=== PATIENT | male | born 1945 | race Caucasian/White ===

== ENCOUNTER 2018-01-01 10:55 | Inpatient (IN) ==
[2018-01-01] MEDS ORDERED: Sod Chloride 0.9% Inj 1,000 ML IV.CONT SCH (11:15)
[2018-01-01] MEDS ORDERED: Morphine Inj 4 MG, Morphine Inj 2 MG IV.PUSH ONE ×4 (11:20→13:28)
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
[2018-01-01 12:24] LABS: Baso # (Auto) 0.1 th/mm3 (0.0-0.2); Baso % (Auto) 0.8 % (0.0-2.0); Eos # (Auto) 0.1 th/mm3 (0.0-0.4); Eos % (Auto) 1.7 % (0.0-4.0); Hematocrit 42.8 % (39.0-51.0); Lymph # (Auto) 2.2 th/mm3 (1.0-4.8); Lymph % (Auto) 31.1 % (9.0-44.0); Mean Corpuscular HGB Conc 32.8 % (32.0-36.0); Mean Corpuscular Hemoglobin 28.2 pg (27.0-34.0); Mean Corpuscular Volume 85.9 fL (80.0-100.0); Mean Platelet Volume 8.3 fL (7.0-11.0); Mono # (Auto) 0.5 th/mm3 (0.0-0.9); Neut # (Auto) 4.2 th/mm3 (1.8-7.7); Neut % (Auto) 59.4 % (16.0-70.0); Platelet Count 256 th/mm3 (150-450); Red Blood Count 4.98 mil/mm3 (4.50-5.90); Red Cell Distribution Width 13.9 % (11.6-17.2)
[2018-01-01 12:34] LABS: Activated Partial Thrombo Time 21.1 sec (24.3-30.1); Prothrombin Time 10.3 sec (9.8-11.6)
[2018-01-01 12:35] LABS: Anion Gap 8 meq/L (5-15); Aspartate Aminotransferase 65 U/L (15-37); Blood Urea Nitrogen 21 mg/dL (7-18); Calcium 9.2 mg/dL (8.5-10.1); Chloride 106 meq/L (98-107); Glomerular Filtration Rate 72 mL/min (>89); Glucose,Random 121 mg/dL (74-106); Potassium 4.2 meq/L (3.5-5.1); Sodium 140 meq/L (136-145)
[2018-01-01 12:36] LABS: Alanine Aminotransferase 57 U/L (12-78)
[2018-01-01 12:39] LABS: Alkaline Phosphatase 42 U/L (45-117); Total Protein 7.4 g/dL (6.4-8.2)
[2018-01-01] MEDS ORDERED: Diphtheria/Tetanus/Pertussis Vaccine Inj 0.5 ML Syringe IM ONE (13:02)
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
[2018-01-01] MEDS ORDERED: Acetaminophen 325 MG Tablet PO PRN (16:40)
[2018-01-01] MEDS ORDERED: Pantoprazole Inj 40 MG Vial IV.PUSH SCH (17:00)
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
[2018-01-01] MEDS: Morphine Sulfate Inj 2 MG/ML Vial IV.PUSH PRN ×2 (19:50→21:40)
[2018-01-01] MEDS: Sod Chloride 0.9% Inj 1,000 ML IV.CONT SCH (20:21)
[2018-01-01] MEDS: Pantoprazole Inj 40 MG Vial IV.PUSH SCH (20:35)
[2018-01-02] MEDS ORDERED: Chlorhexidine Gluconate 2% 1 Pack (2 Cloths) TOPICAL PRN (04:00)
[2018-01-02] MEDS: Morphine Sulfate Inj 2 MG/ML Vial IV.PUSH PRN (04:15)
[2018-01-02] MEDS: Chlorhexidine Gluconate 2% 1 Pack (2 Cloths) TOPICAL SCH (05:02)
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
[2018-01-02 05:36] LABS: Baso % (Auto) 0.6 % (0.0-2.0); Eos % (Auto) 0.6 % (0.0-4.0); Hematocrit 36.4 % (39.0-51.0); Hemoglobin 12.2 gm/dL (13.0-17.0); Lymph # (Auto) 1.5 th/mm3 (1.0-4.8); Lymph % (Auto) 20.3 % (9.0-44.0); Mean Corpuscular HGB Conc 33.4 % (32.0-36.0); Mean Corpuscular Hemoglobin 28.7 pg (27.0-34.0); Mean Corpuscular Volume 85.9 fL (80.0-100.0); Mean Platelet Volume 8.4 fL (7.0-11.0); Neut # (Auto) 4.6 th/mm3 (1.8-7.7); Neut % (Auto) 64.5 % (16.0-70.0); Platelet Count 207 th/mm3 (150-450); Red Blood Count 4.24 mil/mm3 (4.50-5.90); Red Cell Distribution Width 13.6 % (11.6-17.2); White Blood Count 7.2 th/mm3 (4.0-11.0)
[2018-01-02 06:14] LABS: Alanine Aminotransferase 44 U/L (12-78); Albumin 3.2 g/dL (3.4-5.0); Alkaline Phosphatase 37 U/L (45-117); Anion Gap 8 meq/L (5-15); Aspartate Aminotransferase 50 U/L (15-37); Blood Urea Nitrogen 19 mg/dL (7-18); Calcium 7.8 mg/dL (8.5-10.1); Carbon Dioxide 25.9 meq/L (21.0-32.0); Chloride 106 meq/L (98-107); Glomerular Filtration Rate 81 mL/min (>89); Glucose,Random 109 mg/dL (74-106); Sodium 140 meq/L (136-145); Total Protein 6.2 g/dL (6.4-8.2)
[2018-01-02] MEDS: Sod Chloride 0.9% Inj 1,000 ML IV.CONT SCH (06:47)
[2018-01-02] MEDS: Lidocaine 5% Patch T-DERMAL SCH (09:07)
[2018-01-02] MEDS: Senna/Docusate Sodium 8.6/50 MG Tablet PO SCH ×2 (09:07→20:15)
[2018-01-02] MEDS: Methocarbamol 500 MG Tablet PO SCH ×3 (09:07→23:20)
[2018-01-02] MEDS: Enoxaparin Inj 40 MG/0.4 ML Syringe SQ SCH (09:07)
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
[2018-01-02] MEDS: Pantoprazole Inj 40 MG Vial IV.PUSH SCH (20:16)
[2018-01-03] MEDS: Chlorhexidine Gluconate 2% 1 Pack (2 Cloths) TOPICAL SCH (03:44)
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
[2018-01-03 04:53] LABS: Baso % (Auto) 0.6 % (0.0-2.0); Eos # (Auto) 0.2 th/mm3 (0.0-0.4); Eos % (Auto) 2.3 % (0.0-4.0); Hematocrit 37.1 % (39.0-51.0); Hemoglobin 12.2 gm/dL (13.0-17.0); Mean Corpuscular HGB Conc 32.8 % (32.0-36.0); Mean Corpuscular Hemoglobin 28.3 pg (27.0-34.0); Mean Corpuscular Volume 86.3 fL (80.0-100.0); Mean Platelet Volume 8.5 fL (7.0-11.0); Mono # (Auto) 0.7 th/mm3 (0.0-0.9); Neut # (Auto) 5.3 th/mm3 (1.8-7.7); Neut % (Auto) 73.1 % (16.0-70.0); Platelet Count 206 th/mm3 (150-450); Red Cell Distribution Width 13.6 % (11.6-17.2); White Blood Count 7.2 th/mm3 (4.0-11.0)
--- NOTE | 2018-01-03 07:35 | P.DCO ---
- Diagnosis (2) Clavicle fracture (3) Closed rib fracture - Physical Therapy Order: Evaluate and treat, Improve ambulation, Strength and gait training - Home Health Nursing Order: Medical education, Signs/symptoms of disease process, Medication education-adverse effect, Nursing assessment with vital signs - Certification I have seen patient Devante Cash on 01/03/18. My clinical findings support the need for the requested home health care services because: Limited mobility due to disease progression, Patient has SOB, Deconditioned with increased weakness, Limited ability to care for self, High risk of falls I certify that my clinical findings support that this patient is homebound because: Post-op weakness, Impaired cognitive ability/safety, Unsteady gait/balance, Unsafe to leave home unassisted, Non-ambulatory: confined to bed or chair, Unable to use public transportation (2) Clavicle fracture Qualifiers: Encounter type: initial encounter Clavicle location: unspecified part of clavicle Fracture type: closed Laterality: right (3) Closed rib fracture Qualifiers: Encounter type: initial encounter Rib fracture type: multiple ribs Laterality: right Qualified Code(s): S22.41XA - Multiple fractures of ribs, right side, initial encounter for closed fracture
[2018-01-03 07:57] LABS: Anion Gap 9 meq/L (5-15); Aspartate Aminotransferase 41 U/L (15-37); Blood Urea Nitrogen 14 mg/dL (7-18); Calcium 7.9 mg/dL (8.5-10.1); Carbon Dioxide 25.6 meq/L (21.0-32.0); Chloride 104 meq/L (98-107); Glomerular Filtration Rate Greater Than 89 mL/min (>89); Glucose,Random 151 mg/dL (74-106); Potassium 3.9 meq/L (3.5-5.1); Sodium 139 meq/L (136-145)
[2018-01-03 07:58] LABS: Alanine Aminotransferase 37 U/L (12-78)
[2018-01-03 08:00] LABS: Alkaline Phosphatase 42 U/L (45-117); Total Protein 6.1 g/dL (6.4-8.2)
[2018-01-03] MEDS: Lidocaine 5% Patch T-DERMAL SCH (08:31)
[2018-01-03] MEDS: Senna/Docusate Sodium 8.6/50 MG Tablet PO SCH ×2 (08:31→20:14)
[2018-01-03] MEDS: Methocarbamol 500 MG Tablet PO SCH ×3 (08:31→23:59)
[2018-01-03] MEDS: Enoxaparin Inj 40 MG/0.4 ML Syringe SQ SCH (08:31)
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
[2018-01-03] MEDS: Pantoprazole Inj 40 MG Vial IV.PUSH SCH (20:14)
[2018-01-04] MEDS: Morphine Sulfate Inj 2 MG/ML Vial IV.PUSH PRN ×2 (00:32→21:21)
[2018-01-04 03:31] LABS: Baso # (Auto) 0.1 th/mm3 (0.0-0.2); Baso % (Auto) 0.6 % (0.0-2.0); Eos # (Auto) 0.1 th/mm3 (0.0-0.4); Eos % (Auto) 1.2 % (0.0-4.0); Hematocrit 34.3 % (39.0-51.0); Hemoglobin 11.8 gm/dL (13.0-17.0); Lymph # (Auto) 1.3 th/mm3 (1.0-4.8); Mean Corpuscular HGB Conc 34.5 % (32.0-36.0); Mean Corpuscular Hemoglobin 29.4 pg (27.0-34.0); Mean Corpuscular Volume 85.1 fL (80.0-100.0); Mono # (Auto) 0.9 th/mm3 (0.0-0.9); Mono % (Auto) 10.6 % (0.0-8.0); Neut # (Auto) 6.3 th/mm3 (1.8-7.7); Neut % (Auto) 72.6 % (16.0-70.0); Platelet Count 197 th/mm3 (150-450); Red Blood Count 4.03 mil/mm3 (4.50-5.90); Red Cell Distribution Width 13.4 % (11.6-17.2); White Blood Count 8.7 th/mm3 (4.0-11.0)
[2018-01-04 04:16] LABS: Albumin 2.9 g/dL (3.4-5.0); Anion Gap 7 meq/L (5-15); Aspartate Aminotransferase 33 U/L (15-37); Blood Urea Nitrogen 17 mg/dL (7-18); Calcium 7.8 mg/dL (8.5-10.1); Carbon Dioxide 29.2 meq/L (21.0-32.0); Chloride 103 meq/L (98-107); Glomerular Filtration Rate 88 mL/min (>89); Glucose,Random 117 mg/dL (74-106); Potassium 4.2 meq/L (3.5-5.1); Sodium 139 meq/L (136-145)
[2018-01-04 04:20] LABS: Alanine Aminotransferase 28 U/L (12-78); Alkaline Phosphatase 36 U/L (45-117); Total Protein 6.2 g/dL (6.4-8.2)
[2018-01-04] MEDS: Chlorhexidine Gluconate 2% 1 Pack (2 Cloths) TOPICAL SCH (05:56)
--- NOTE | 2018-01-04 06:58 | XR ---
EXAM DATE: 01/04/2018 6:36 AM EDT AGE/SEX: 72 years / Male INDICATIONS: Pain right chest, clavicle and ribs, short of breath CLINICAL DATA: This is the patient's subsequent encounter. Patient reports that signs and symptoms h ave been present for 2 days and indicates a pain score of 10/10. MEDICAL/SURGICAL HISTORY: . right clavicle fracture, right hemopneumothorax . right shoulder COMPARISON: [facility], CHEST 1V SINGLE AP, 01/03/2018. . FINDINGS: Parenchymal consolidation and moderate pleural effusion worsening on the right. Left base parenchymal consolidation not significantly changed. No pneumothorax demonstrated. Right rib and clavicle fractu res are again noted. Heart size stable, within normal limits. CONCLUSION: Pleural effusion and parenchymal consolidation on the right modestly worse. Left base consolidation n ot significantly changed. Electronically signed by: Romario Hughes MD 01/04/2018 6:56 AM EDT
[2018-01-04] MEDS: Senna/Docusate Sodium 8.6/50 MG Tablet PO SCH ×2 (09:25→21:22)
[2018-01-04] MEDS: Methocarbamol 500 MG Tablet PO SCH ×2 (09:25→17:03)
[2018-01-04] MEDS: Lidocaine 5% Patch T-DERMAL SCH (09:26)
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
[2018-01-04] MEDS: Ketorolac Inj 30 MG/ML (IVP) Vial IV.PUSH SCH ×3 (12:03→23:59)
[2018-01-04] MEDS ORDERED: fentaNYL Citrate Inj 250 MCG/5 ML Ampul ONE (12:56)
--- NOTE | 2018-01-04 15:51 | CT ---
EXAM DATE: 01/04/2018 3:44 PM EDT AGE/SEX: 72 years / Male INDICATIONS: Hemothorax. CLINICAL DATA: This is the patient's initial encounter. Patient reports that signs and symptoms have been present for 1 day and indicates a pain score of 10/10. MEDICAL/SURGICAL HISTORY: None. None. MEDICATION(S): 2mg midazolam (Versed) IV 250mcg fentanyl (Sublimaze) IV DEVICE(S): 8 Fr [place] . . COMPARISON: No prior exams available for comparison. PROCEDURE : CT guided right chest tube placement. The risks, benefits and alternatives to the procedure were explained and verbal and written consent w as obtained. The site was prepped in sterile fashion. Full sterile technique was used, including ca p, mask, sterile gloves and gown and a large sterile sheet. Hand hygiene and 2% chlorhexidine and/or betadine/alcohol prep was utilized per protocol for cutaneous antisepsis. The skin and subcutaneous tissues were infiltrated with local anesthetic solution. Using automated exposure control and adjus tment of the mA and/or kV according to patient size, radiation dose was kept as low as reasonably ach ievable to obtain optimal diagnostic quality images. DICOM format image data is available electronic ally for review and comparison. With CT guidance the chest was punctured and the prescribed catheter was placed in the right Mid lung of the lung. Wall suction was applied. Post procedure images demonstrate satisfactory position of t he tube. The catheter was sutured in place and a Percu-Stay was applied. The patient tolerated the procedure well and there were no complications. The patient was sent to pos t anesthesia recovery in stable condition. FINDINGS: After obtaining consent, a CT-guided chest tube placement was performed. A nonlocking 8 Turkmen chest tube was placed into the pleural space and bloody fluid was aspirated as described above. CONCLUSION: 1. Uncomplicated chest tube placement as above. Electronically signed by: Tam Leahy MD 01/04/2018 3:49 PM EDT
--- NOTE | 2018-01-04 15:54 | XR ---
EXAM DATE: 01/04/2018 3:51 PM EDT AGE/SEX: 72 years / Male INDICATIONS: Status post chest tube placement. CLINICAL DATA: This is the patient's subsequent encounter. Patient reports that signs and symptoms h ave been present for 2 days and indicates a pain score of 8/10. MEDICAL/SURGICAL HISTORY: . Right clavicle fracture, right hemopneumothorax. None. COMPARISON: [facility] [place] CHEST 1V SINGLE AP, 01/04/2018. . FINDINGS: A small right-sided nonlocking chest tube is noted at the right lung base posteriorly. No significant residual hemopneumothorax is identified. CONCLUSION: No significant residual hemopneumothorax identified status post placement of chest tube. Electronically signed by: Tam Leahy MD 01/04/2018 3:53 PM EDT
[2018-01-04] MEDS: Pantoprazole Inj 40 MG Vial IV.PUSH SCH (21:22)
[2018-01-05 05:04] LABS: Baso % (Auto) 0.7 % (0.0-2.0); Eos # (Auto) 0.3 th/mm3 (0.0-0.4); Eos % (Auto) 4.1 % (0.0-4.0); Hemoglobin 12.1 gm/dL (13.0-17.0); Lymph # (Auto) 1.2 th/mm3 (1.0-4.8); Lymph % (Auto) 18.6 % (9.0-44.0); Mean Corpuscular HGB Conc 32.6 % (32.0-36.0); Mean Corpuscular Hemoglobin 28.5 pg (27.0-34.0); Mean Corpuscular Volume 87.4 fL (80.0-100.0); Mean Platelet Volume 8.3 fL (7.0-11.0); Mono # (Auto) 0.6 th/mm3 (0.0-0.9); Neut # (Auto) 4.5 th/mm3 (1.8-7.7); Neut % (Auto) 67.6 % (16.0-70.0); Platelet Count 218 th/mm3 (150-450); Red Blood Count 4.23 mil/mm3 (4.50-5.90); Red Cell Distribution Width 13.4 % (11.6-17.2); White Blood Count 6.7 th/mm3 (4.0-11.0)
[2018-01-05 05:21] LABS: Albumin 2.7 g/dL (3.4-5.0); Anion Gap 9 meq/L (5-15); Aspartate Aminotransferase 41 U/L (15-37); Blood Urea Nitrogen 22 mg/dL (7-18); Carbon Dioxide 27.6 meq/L (21.0-32.0); Chloride 103 meq/L (98-107); Glomerular Filtration Rate 79 mL/min (>89); Glucose,Random 116 mg/dL (74-106); Potassium 4.3 meq/L (3.5-5.1); Sodium 140 meq/L (136-145)
[2018-01-05 05:22] LABS: Alanine Aminotransferase 35 U/L (12-78)
[2018-01-05 05:24] LABS: Alkaline Phosphatase 42 U/L (45-117); Total Protein 6.2 g/dL (6.4-8.2)
[2018-01-05] MEDS: Ketorolac Inj 30 MG/ML (IVP) Vial IV.PUSH SCH ×3 (05:50→17:11)
[2018-01-05] MEDS: Chlorhexidine Gluconate 2% 1 Pack (2 Cloths) TOPICAL SCH (05:51)
--- NOTE | 2018-01-05 06:59 | XR ---
EXAM DATE: 01/05/2018 6:49 AM EDT AGE/SEX: 72 years / Male INDICATIONS: Short of breath, pain right chest and clavicle, evaluate hemopneumothorax and chest tub e on right side CLINICAL DATA: This is the patient's subsequent encounter. Patient reports that signs and symptoms h ave been present for 3 days and indicates a pain score of 10/10. MEDICAL/SURGICAL HISTORY: . hemopneumothorax, right clavicle fracture Chest tube, right. COMPARISON: [facility] [place], CHEST 1V SINGLE AP, 01/04/2018. . FINDINGS: A single AP view of the chest demonstrates interval placement of a right inferior pleural catheter. A ssociated decreased right pleural effusion, though with persistent hazy opacification throughout the right hemithorax. No definite right pneumothorax. Stable appearance of the left lung with patchy opac ities predominantly in the lung base. Stable cardiomediastinal silhouette. Right clavicle and right r ib fractures again demonstrated. CONCLUSION: Interval placement of a right inferior pleural catheter with associated decreased right pleural effus ion. Electronically signed by: Juju Anderson MD 01/05/2018 6:57 AM EDT
[2018-01-05] MEDS: Senna/Docusate Sodium 8.6/50 MG Tablet PO SCH ×2 (08:51→21:03)
[2018-01-05] MEDS: Methocarbamol 500 MG Tablet PO SCH ×3 (08:52→17:11)
[2018-01-05] MEDS: Lidocaine 5% Patch T-DERMAL SCH (08:52)
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
[2018-01-05] MEDS: Pantoprazole Inj 40 MG Vial IV.PUSH SCH (21:03)
[2018-01-06] MEDS: Methocarbamol 500 MG Tablet PO SCH ×3 (00:54→23:57)
[2018-01-06] MEDS: Ketorolac Inj 30 MG/ML (IVP) Vial IV.PUSH SCH ×4 (00:54→18:08)
[2018-01-06 05:14] LABS: Baso % (Auto) 0.7 % (0.0-2.0); Eos # (Auto) 0.4 th/mm3 (0.0-0.4); Eos % (Auto) 6.1 % (0.0-4.0); Hematocrit 34.6 % (39.0-51.0); Hemoglobin 11.3 gm/dL (13.0-17.0); Lymph # (Auto) 1.4 th/mm3 (1.0-4.8); Lymph % (Auto) 19.2 % (9.0-44.0); Mean Corpuscular HGB Conc 32.7 % (32.0-36.0); Mean Corpuscular Hemoglobin 28.4 pg (27.0-34.0); Mean Corpuscular Volume 86.7 fL (80.0-100.0); Mean Platelet Volume 7.6 fL (7.0-11.0); Mono # (Auto) 0.7 th/mm3 (0.0-0.9); Neut # (Auto) 4.8 th/mm3 (1.8-7.7); Platelet Count 237 th/mm3 (150-450); Red Blood Count 3.99 mil/mm3 (4.50-5.90); Red Cell Distribution Width 13.5 % (11.6-17.2); White Blood Count 7.3 th/mm3 (4.0-11.0)
[2018-01-06 05:36] LABS: Alanine Aminotransferase 39 U/L (12-78); Albumin 2.7 g/dL (3.4-5.0); Anion Gap 5 meq/L (5-15); Aspartate Aminotransferase 36 U/L (15-37); Blood Urea Nitrogen 27 mg/dL (7-18); Carbon Dioxide 29.6 meq/L (21.0-32.0); Chloride 103 meq/L (98-107); Glomerular Filtration Rate 84 mL/min (>89); Glucose,Random 112 mg/dL (74-106); Potassium 4.2 meq/L (3.5-5.1); Sodium 138 meq/L (136-145)
[2018-01-06] MEDS: Chlorhexidine Gluconate 2% 1 Pack (2 Cloths) TOPICAL SCH (05:37)
[2018-01-06 05:40] LABS: Alkaline Phosphatase 39 U/L (45-117); Total Protein 6.1 g/dL (6.4-8.2)
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
[2018-01-06] MEDS: Enoxaparin Inj 40 MG/0.4 ML Syringe SQ SCH (09:37)
[2018-01-06] MEDS: Lidocaine 5% Patch T-DERMAL SCH (09:37)
[2018-01-06] MEDS: Senna/Docusate Sodium 8.6/50 MG Tablet PO SCH ×2 (09:39→21:41)
[2018-01-07] MEDS: Ketorolac Inj 30 MG/ML (IVP) Vial IV.PUSH SCH ×5 (01:32→23:51)
[2018-01-07] MEDS: Enoxaparin Inj 40 MG/0.4 ML Syringe SQ SCH ×2 (08:44→10:22)
[2018-01-07] MEDS: Famotidine 20 MG Tablet PO SCH ×2 (08:45→20:22)
[2018-01-07] MEDS: Lidocaine 5% Patch T-DERMAL SCH (08:45)
[2018-01-07] MEDS: Senna/Docusate Sodium 8.6/50 MG Tablet PO SCH ×2 (08:45→20:22)
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
[2018-01-08] MEDS: Ketorolac Inj 30 MG/ML (IVP) Vial IV.PUSH SCH ×3 (05:22→17:51)
[2018-01-08] MEDS: Lidocaine 5% Patch T-DERMAL SCH (08:44)
[2018-01-08] MEDS: Enoxaparin Inj 40 MG/0.4 ML Syringe SQ SCH (08:44)
[2018-01-08] MEDS: Famotidine 20 MG Tablet PO SCH ×2 (08:45→20:14)
[2018-01-08] MEDS: Senna/Docusate Sodium 8.6/50 MG Tablet PO SCH ×2 (08:45→20:14)
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
[2018-01-09] MEDS: Ketorolac Inj 30 MG/ML (IVP) Vial IV.PUSH SCH ×2 (00:40→05:54)
--- NOTE | 2018-01-09 04:44 | XR ---
EXAM DATE: 01/09/2018 4:05 AM EDT AGE/SEX: 72 years / Male INDICATIONS: Pneumothorax. CLINICAL DATA: This is the patient's subsequent encounter. Patient reports that signs and symptoms h ave been present for 1 week and indicates a pain score of 5/10. MEDICAL/SURGICAL HISTORY: None. . Shoulder, Right. COMPARISON: [facility] [place], CHEST 1V SINGLE AP, 01/06/2018. . FINDINGS: A single AP view of the chest demonstrates interval removal of the right thoracostomy tube without pn eumothorax. Loculated fluid versus pleural thickening again seen involving the lateral right hemithor ax. This is stable. Heart is normal in size. Lungs are clear. No infiltrates. Right-sided clavicular and rib fractures. Right humeral head prosthesis partially seen. CONCLUSION: No pneumothorax. Electronically signed by: Kirt Berry MD 01/09/2018 4:43 AM EDT
[2018-01-09 08:58] VITALS: BP 107/63; PULSE 61; RESP 18; TEMP 97.8; O2SAT 97
[2018-01-09] MEDS: Lidocaine 5% Patch T-DERMAL SCH (09:19)
[2018-01-09] MEDS: Enoxaparin Inj 40 MG/0.4 ML Syringe SQ SCH (09:20)
[2018-01-09] MEDS: Senna/Docusate Sodium 8.6/50 MG Tablet PO SCH (09:20)
[2018-01-09] MEDS: Famotidine 20 MG Tablet PO SCH (09:20)
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
== END 2018-01-09 12:36 | disposition home or self-care (01) ==
LOC: EDSEX → NEPD 10:55 → NEDA 16:15 → N03 19:20 → N07 01-03 12:33
PROVIDERS: ADMIT Surgery; ATTEND Surgery